=== PATIENT | female | born 1975 | race Caucasian/White ===

== ENCOUNTER 2017-07-10 07:08 | Day surgery (SDC) | payer OTHER ==
[2017-07-10] MEDS ORDERED: Lactated Ringer's 1,000 ML IV ONE (08:35)
--- NOTE | 2017-07-10 08:35 | CP.SDSHP ---
Same Day Surgery H & P - History Proposed Procedure: EGD Pre-Op Diagnosis: SEE NOTES - Previous Medical/Surgical History Endocrine/Metabolic: Diabetes Neuro: Other Pain: 4.Moderate Pain - Allergies Allergies: Allergies No Known Allergies Allergy (Verified 06/05/14 08:41) - Physical Exam General Appearance: n Vital Signs: Vital Signs 07/10/17 07:30 Temperature 99.1 F Pulse Rate 97 H Respiratory 20 Rate Blood Pressure 118/78 O2 Sat by Pulse 100 Oximetry Mental Status: Alert & Oriented x3 Neuro: WNL Heart: WNL Lungs: WNL GI: Other - {Optional Preform as Required} Breast: WNL Abdomen: Other Rectal: Other Integument: WNL : WNL Ortho: WNL ENT: WNL - Impression Pt. Evaluated Today:Candidate for Anesthesia & Procedure: Yes - Date & Time Time: 08:35 Short Stay Discharge - Short Stay Discharge Admitting Diagnosis/Reason for Visit: DYSPEPSIA Disposition: HOME/ ROUTINE
[2017-07-10] MEDS ORDERED: Propofol 10 mg/ml Inj (20 ML) ONE (08:38)
[2017-07-10] MEDS ORDERED: Lidocaine Hydrochloride 10 ML INJ ONE (08:38)
[2017-07-10] MEDS ORDERED: Belladonna-Phenobarbital PO ONE (09:05)
[2017-07-10 09:29] VITALS: TEMP 97.9
[2017-07-10 11:45] VITALS: O2SAT 97
[2017-07-10 13:52] VITALS: BP 121/77; PULSE 75; RESP 18
== END 2017-07-10 10:05 | disposition home or self-care (01) ==
LOC: C.ENDO 07:08
PROVIDERS: ATTEND Specialist
DX: K29.70 Gastritis, unspecified, without bleeding (principal); K30 Functional dyspepsia; B96.81 Helicobacter pylori [H. pylori] as the cause of diseases classified elsewhere; E11.9 Type 2 diabetes mellitus without complications
CPT/HCPCS: 43239; 82948; 84703; 88305; 88342; J2704; J2765; J7120

== ENCOUNTER 2018-05-20 09:49 | Emergency (ER) | payer MEDICAID, OTHER ==
[2018-05-20 10:02] VITALS: RESP 18
[2018-05-20 12:46] LABS: BASO % 0.3 % (0.0-2.0); EOS # 0.3 K/uL (0.0-0.7); EOS % 4.9 % (0.0-4.0); HEMOGLOBIN 10.2 g/dL (11.0-16.0); LYMPH # 1.4 K/uL (1.0-4.3); LYMPH % 21.5 % (20.0-40.0); MEAN CELL VOLUME 83.5 fL (81.0-99.0); MEAN CORPUSCULAR HEMOGLOBIN 27.8 pg (27.0-31.0); MEAN CORPUSCULAR HGB CONC 33.3 g/dL (33.0-37.0); MEAN PLATELET VOLUME 8.5 fL (7.2-11.7); MONO # 0.4 K/uL (0.0-0.8); MONO % 5.8 % (0.0-10.0); NEUT # 4.4 K/uL (1.8-7.0); NEUT % 67.5 % (50.0-75.0); RBC 3.65 Mil/uL (3.80-5.20); RED CELL DISTRIBUTION WIDTH 14.6 % (11.5-14.5); WHITE BLOOD COUNT 6.5 K/uL (4.8-10.8)
[2018-05-20 13:00] LABS: ALB/GLOB RATIO 1.3 (1.0-2.1); AST/SGOT 17 U/L (14-36); BLOOD UREA NITROGEN 9 mg/dL (7-17); CALCIUM 9.3 mg/dl (8.6-10.4); GFR NON-AFRICAN AMERICAN > 60
[2018-05-20 13:01] LABS: ALT/SGPT < 6 U/L (9-52)
[2018-05-20 13:22] VITALS: BP 120/75
--- NOTE | 2018-05-20 14:08 | RAD ---
Date of service: 05/20/2018 PROCEDURE: CHEST RADIOGRAPH, 1 VIEW HISTORY: cough. zoster exposure COMPARISON: None available. FINDINGS: LUNGS: No consolidation. Shallow lung volumes. PLEURA: No pneumothorax or pleural fluid seen. CARDIOVASCULAR: No aortic atherosclerotic calcification present. Normal. OSSEOUS STRUCTURES: No significant abnormalities. VISUALIZED UPPER ABDOMEN: Normal. OTHER FINDINGS: Cyst tiny metallic like density projecting over the left upper lung zone this could be extrinsic to the patient-correlate clinically.. IMPRESSION: No acute cardiopulmonary pathology appreciated. Shallow lung volumes as above. Other findings as above. Comments: Study marked for PA review .
--- NOTE | 2018-05-20 14:16 | C.PDOC ---
History Of Present Illness 42 y/o female, 5 months , presents to the ER c/o nasal congestion and cough which began today. Patient's is being evaluated in the ER for shingles x 2 days. Patient reports that she feels her baby "kicking" and she d oes not have any abdominal pain. Denies having fever,chills, rash, n,v,d. Time Seen by Provider: 05/20/18 11:01 Chief Complaint (Nursing): Cough, Cold, Congestion History Per: Patient History/Exam Limitations: no limitations Onset/Duration Of Symptoms: Days Current Symptoms Are (Timing): Still Present Associated Symptoms: Cough, Nasal Congestion. denies: Fever, Chills, Nausea, Vomiting, Diarrhea Severity: Moderate Past Medical History Reviewed: Historical Data, Nursing Documentation, Vital Signs Vital Signs: Last Vital Signs Temp 98.5 F 05/20/18 13:22 Pulse 100 H 05/20/18 13:22 Resp 18 05/20/18 13:22 BP 120/75 05/20/18 13:22 Pulse Ox 98 05/20/18 13:22 - Medical History PMH: Gall Bladder Disease, Osteoporosis Denies: Chronic Kidney Disease Surgical History: Appendectomy, Cholecystectomy Family History: States: No Known Family Hx - Social History Hx Tobacco Use: No Hx Alcohol Use: No Hx Substance Use: No - Immunization History Hx Influenza Vaccination: No Hx Pneumococcal Vaccination: No Review Of Systems Constitutional: Negative for: Fever, Chills ENT: Positive for: Nose Congestion Cardiovascular: Negative for: Chest Pain Respiratory: Positive for: Cough. Negative for: Shortness of Breath Gastrointestinal: Negative for: Nausea, Vomiting, Abdominal Pain, Diarrhea Physical Exam - Physical Exam Appears: Non-toxic, No Acute Distress Skin: Warm, Dry Head: Atraumatic, Normacephalic Eye(s): bilateral: Normal Inspection Ear(s): Bilateral: Normal Nose: Other (mild nasal congestion) Oral Mucosa: Moist Throat: No Erythema, No Exudate Neck: Supple Chest: Symmetrical Cardiovascular: Rhythm Regular Respiratory: No Rales, No Rhonchi, No Wheezing Gastrointestinal/Abdominal: Soft, No Tenderness, No Guarding, No Rebound, Other (gravid) Neurological/Psych: Oriented x3, Normal Speech, Normal Cognition ED Course And Treatment - Laboratory Results Result Diagrams: 05/20/18 12:43 05/20/18 12:43 Lab Results: Total Bilirubin 0.2 mg/dL (0.2-1.3) 05/20/18 12:43 AST 17 U/L (14-36) 05/20/18 12:43 ALT < 6 U/L (9-52) L D 05/20/18 12:43 Alkaline Phosphatase 75 U/L (38-126) 05/20/18 12:43 Total Protein 7.0 g/dL (6.3-8.3) 05/20/18 12:43 Albumin 4.0 g/dL (3.5-5.0) 05/20/18 12:43 Globulin 3.0 gm/dL (2.2-3.9) 05/20/18 12:43 Albumin/Globulin Ratio 1.3 (1.0-2.1) 05/20/18 12:43 O2 Sat by Pulse Oximetry: 98 (RA) Pulse Ox Interpretation: Normal - Other Rad CXR X-Ray: Viewed By Me, Read By Radiologist Interpretation: IMPRESSION: No acute cardiopulmonary pathology appreciated. Shallow lung volumes as above. Medical Decision Making Medical Decision Making: Plan: --Labs --CXR Updates: 14:15: Case d/c with , ELEVATORS INSPECTOR and patient's ELEVATORS INSPECTOR who advised for pt to be treated with Valtrex. Case d/c with , ID, who advised for pt to be administered Zoster Immunoglobulin. [facility] [place] does not have Immunoglo bulin. Pending CXR results. Disposition Counseled Patient/Family Regarding: Studies Performed, Diagnosis, Need For Followup, Rx Given - Disposition Referrals: Chrystal Lock MD [Staff Provider] - Disposition: HOME/ ROUTINE Disposition Time: 14:35 Condition: GOOD Additional Instructions: Take Valtrex as prescribed until completed. Follow up with Dr Lock or Dr Goddard in 2-3 days and follow up with your pharmaceutical scientist in 2 weeks. Return to ER for any worse symptoms. Prescriptions: Valacyclovir HCl [Valtrex] 1 gm PO TID #30 tablet Instructions: Upper Respiratory Infection (ED) Forms: [facility] (Portuguese), General Discharge Instructions - Clinical Impression Clinical Impression: Upper respiratory infection, Exposure to varicella zoster virus (VZV) - PA / [employer] / Resident Statement MD/DO has reviewed & agrees with the documentation as recorded. - Scribe Statement The provider has reviewed the documentation as recorded by the Scribe Naif Mera Provider Attestation All medical record entries made by the Editaibmarlyn were at my direction and personally dictated by me. I have reviewed the chart and agree that the record accurately reflects my personal performance of the history, physical exam, medical decision making, and the department course for this patient. I have also personally directed, reviewed, and agree with the discharge instructions and disposition.
[2018-05-20 14:55] VITALS: PULSE 90; TEMP 98
[2018-05-20 18:34] VITALS: O2SAT 98
== END 2018-05-20 14:58 | disposition home or self-care (01) ==
LOC: C.ER 09:49
DX: O26.892 Other specified pregnancy related conditions, second trimester (principal); Z3A.20 20 weeks gestation of pregnancy; J06.9 Acute upper respiratory infection, unspecified; Z20.820 Contact with and (suspected) exposure to varicella